=== PATIENT | female | born 1965 | race Caucasian/White ===

== ENCOUNTER → 2016-09-03 | Outpatient (CLI) | payer MEDICAID ==
[~2016-09-03] MED LIST: 00186-0372-20 IH; COGENTIN 1MG1 MG/TAB PO; CYMBALTA 30MG30 MG PO; DITROPAN 5MG TAB5 MG PO; ELIQUIS 5MG PO; ESTRACE0.5 MG PO; FENTANYL 50MCG TD; GLUCOPHAGE500 MG/TAB PO; LAMICTAL 25MG T25 MG PO; LATUDA80 MG PO; MOBIC15 MG PO; PROAIR HFA0.09 MG/AC IH; REMERON 15M15 MG/TA1 PO; REQUIP0.25 MG PO; VISTARIL50 MG PO
== END ==
LOC: COL.RAD 08:49
DX: M25.522 Pain in left elbow (principal)
CPT/HCPCS: J3301; Q9967

== ENCOUNTER 2016-09-23 09:08 | Inpatient (IN) | payer MEDICAID ==
[~2016-09-23] VITALS: Ht 170.2 cm; Wt 110.6 kg
[2016-11-17] VITALS (13 sets, daily range): BP systolic 97–139; BP diastolic 51–79; PULSE 60–79; TEMP 97.2–99.3
[2016-11-17] MEDS ORDERED: CYMBALTA 30MG30 MG PO (05:36)
[2016-11-17] MEDS ORDERED: REMERON 15M15 MG/TA1 PO (05:37)
[2016-11-17] MEDS ORDERED: LATUDA80 MG PO (05:39)
[2016-11-17] MEDS ORDERED: LAMICTAL 25MG T25 MG PO (05:40)
[2016-11-17] MEDS ORDERED: REQUIP0.25 MG PO (05:42)
[2016-11-17] MEDS ORDERED: MOBIC15 MG PO (05:44)
[2016-11-17] MEDS ORDERED: DITROPAN 5MG TAB5 MG PO (05:45)
[2016-11-17] MEDS ORDERED: ELIQUIS 5MG PO (05:46)
[2016-11-17] MEDS ORDERED: FENTANYL 50MCG TD (05:48)
[2016-11-17] MEDS ORDERED: GLUCOPHAGE500 MG/TAB PO (05:48)
[2016-11-17] MEDS ORDERED: COGENTIN 1MG1 MG/TAB PO (05:51)
[2016-11-17] MEDS ORDERED: 00186-0372-20 IH (05:52)
[2016-11-17] MEDS ORDERED: PROAIR HFA0.09 MG/AC IH (05:53)
[2016-11-17] MEDS ORDERED: ESTRACE0.5 MG PO (05:54)
[2016-11-17] MEDS ORDERED: VISTARIL50 MG PO (05:56)
[2016-11-18 04:27] VITALS: BP 116/55; PULSE 73; TEMP 98.8
[2016-11-18 07:18] LABS: HEMATOCRIT 31.3 % (37.0-47.0)
[2016-11-18 07:25] VITALS: BP 139/62; PULSE 74; TEMP 99
== END 2016-11-18 11:15 | disposition home or self-care (01) | DRG 470 ==
LOC: JCC 11-17 05:10
PROVIDERS: Orthopaedic Surgery Sports Medicine
PROC: 0SRB0JA Replacement of Left Hip Joint with Synthetic Substitute, Uncemented, Open Approach (ICD-10-PCS; principal; 2016-11-17 07:30)
DX: M16.12 Unilateral primary osteoarthritis, left hip (principal); E11.9 Type 2 diabetes mellitus without complications; F17.210 Nicotine dependence, cigarettes, uncomplicated; M91.42 Coxa magna, left hip
CPT/HCPCS: A9284; C1713; C1776; J1170; J2250; J2274; J2704; J3010; J7030

== ENCOUNTER → 2016-11-10 | Outpatient (CLI) | payer MEDICAID | LOC: COL.LAB 11:43 | DX: Z96.642 Presence of left artificial hip joint (principal) ==

== ENCOUNTER 2017-07-05 06:10 | Day surgery (SDC) | payer MEDICAID ==
[~2017-07-05] VITALS: Ht 170.2 cm; Wt 121.0 kg
[2017-07-05 07:37] VITALS: BP 138/68; PULSE 74; TEMP 98.3
[2017-07-05 11:50] VITALS: BP 147/77; PULSE 64; TEMP 97.8
[2017-07-05 12:00] VITALS: BP 148/55; PULSE 72
[2017-07-05 12:15] VITALS: BP 108/72; PULSE 74
[2017-07-05 12:45] VITALS: BP 129/89; PULSE 78
[2017-07-05 15:59] VITALS: BP 145/74; PULSE 56; TEMP 97.6
== END 2017-07-05 13:05 | disposition home or self-care (01) ==
LOC: SDCO 06:10
DX: M76.12 Psoas tendinitis, left hip (principal); G47.33 Obstructive sleep apnea (adult) (pediatric); G43.909 Migraine, unspecified, not intractable, without status migrainosus; E11.40 Type 2 diabetes mellitus with diabetic neuropathy, unspecified; E11.22 Type 2 diabetes mellitus with diabetic chronic kidney disease; N18.9 Chronic kidney disease, unspecified; F17.210 Nicotine dependence, cigarettes, uncomplicated; J44.9 Chronic obstructive pulmonary disease, unspecified; F32.9 Major depressive disorder, single episode, unspecified; K21.9 Gastro-esophageal reflux disease without esophagitis; F41.9 Anxiety disorder, unspecified; D64.9 Anemia, unspecified; Z79.84 Long term (current) use of oral hypoglycemic drugs; Z90.49 Acquired absence of other specified parts of digestive tract; Z90.710 Acquired absence of both cervix and uterus; Z96.642 Presence of left artificial hip joint; Z86.718 Personal history of other venous thrombosis and embolism; Z86.711 Personal history of pulmonary embolism
CPT/HCPCS: OP; J0690; J1100; J1170; J1885; J1940; J2250; J2405; J2704; J2710; J3010; J7030